=== PATIENT | male | born 1980 ===

== ENCOUNTER 2023-09-01 03:49 | Day surgery (SDC) | payer OTHER ==
[2023-08-28 16:04] VITALS: BMI 31.9
[2023-09-01] MEDS ORDERED: LIDOCAINE HCL 1%, 10 MG/ML (20ML VIAL) ONE (15:01)
[2023-09-01] MEDS ORDERED: PROPOFOL 20 ML ONE (16:01)
[2023-09-01] MEDS ORDERED: MIDAZOLAM HCL 2 MG/2 ML SINGLE DOSE VIAL ONE (16:01)
[2023-09-01] MEDS: ceFAZolin SODIUM 1 GM VIAL IVPB ONE (16:26)
[2023-09-01] MEDS ORDERED: ONDANSETRON 4 MG/2 ML VIAL ONE (16:30)
[2023-09-01] MEDS ORDERED: DEXAMETHASONE SOD PHOSPHATE 4 MG/1 ML VIAL ONE (16:30)
[2023-09-01] MEDS: LIDOCAINE HCL 1%, 10 MG/ML (20ML VIAL) NR ONE (16:34)
[2023-09-01] MEDS: BUPIVACAINE HCL/PF 0.25% (2.5MG/ML) 10 ML VIAL IJ ONE (16:34)
[2023-09-01] MEDS ORDERED: BENZOIN/ALOE VERA/STORAX/TOLU 58 ML BOTTLE ONE (17:05)
[2023-09-01] MEDS ORDERED: ONDANSETRON 4 MG/2 ML VIAL IVPUSH PRN (17:37)
[2023-09-01] MEDS ORDERED: LACTATED RINGERS SOLUTION 1,000 ML IV SCH (17:45)
[2023-09-01] MEDS: oxyCODONE HCL 5 MG TABLET PO ONE (19:00)
[2023-09-01] MEDS ORDERED: oxyCODONE HCL 10 MG SUSTAINED ACTING TABLET ONE (19:12)
[2023-09-01 19:28] VITALS: TEMP 97.3
[2023-09-01] MEDS ORDERED: IBUPROFEN 400 MG TABLET (FP) PO PRN (19:58)
[2023-09-01] MEDS ORDERED: ACETAMINOPHEN 500 MG TABLET (FP) PO PRN (19:59)
[2023-09-01 20:43] VITALS: BP 115/75; PULSE 62; RESP 20
== END 2023-09-01 21:40 | disposition home or self-care (01) ==
LOC: JASU-SURG 03:49 → JASUSAT 03:49 → J6S 20:40 → JASUSAT 21:40
PROVIDERS: ATTEND Urology
PROC: 0VT90ZZ Resection of Right Testis, Open Approach (ICD-10-PCS; principal; 2023-09-01 16:00)
DX: C62.91 Malignant neoplasm of right testis, unspecified whether descended or undescended (principal)
CPT/HCPCS: 88309-TC; 94760